=== PATIENT | female | born 2000 | race Two or more races ===

== ENCOUNTER 2022-01-24 09:05 | Emergency (ER) | payer MEDICAID, SELFPAY ==
[2022-01-24 09:18] VITALS: BP 122/71; PULSE 84; RESP 16; TEMP 37; O2SAT 99
--- NOTE | 2022-01-24 09:55 | ED.EAR ---
HPI - Ear Problem General Chief complaint: Ear Stated complaint: right ear pain Time Seen by Provider: 01/24/22 09:48 Source: patient and RN notes reviewed Mode of arrival: ambulatory Limitations: no limitations History of Present Illness HPI Narrative: Patient presents today complaining of right ear pain since late last night with occasional muffling. She currently rates pain 5/10 and has been taking allergy medication without relief. Denies drainage. Denies recent illness. MD Complaint: ear pain and decreased hearing Related Data Allergies Allergy/AdvReac Type Severity Reaction Status Date / Time No Known Allergies Allergy Verified 01/24/22 09:33 Review of Systems Review of Systems: CONSTITUTIONAL: Denies body aches, fever, chills, or sweats. EYES: Denies visual changes, redness, or discharge. ENT: Denies rhinorrhea, congestion, sore throat. + Right ear pain with occasional muffling CARDIOVASCULAR: Denies chest pain, palpitations, or edema. RESPIRATORY: Denies cough or dyspnea. GASTROINTESTINAL: Denies abdominal pain, nausea, vomiting, or diarrhea. GENITOURINARY: Denies dysuria or hematuria. SKIN: Denies rash, itching, or wounds. MUSCULOSKELETAL: Denies back pain, joint pain, or myalgia. NEUROLOGIC: Denies headache, numbness, tingling, or weakness. PSYCH: Denies depression or anxiety. PMFSH Comments At time of signature, I have reviewed and agree with nursing past medical, surgical, social and family history unless otherwise noted. Please see nursing chart for further information. There is no relevant family history pertinent to the presenting complaint Exam Narrative: GENERAL: Well-appearing, well-nourished, and in no acute distress. HEAD: Normocephalic, atraumatic. EYES: EOMI. No redness or drainage. Conjunctivae normal. ENT: Mucous membranes pink and moist. Nares clear. No rhinorrhea. Left ear normal. Right TM normal. Right ear canal is erythematous and mildly edematous with right yellow debris. Mild movement tenderness. NECK: Normal AROM. CHEST: No respiratory distress. EXTREMITIES: Normal range of motion. No edema. SKIN: Warm, dry, no rash. Capillary refill normal. Normal skin turgor. NEURO: No focal deficits. Alert and oriented x3. Gait steady. PSYCH: Normal affect. No signs of depression or anxiety. Course Course Level of Care: Express Care Visit Vital Signs Vital signs: Vital Signs Temperature 98.6 F 01/24/22 09:18 Pulse Rate 84 01/24/22 09:18 Respiratory Rate 16 01/24/22 09:18 Blood Pressure 122/71 01/24/22 09:18 Pulse Oximetry 99 01/24/22 09:18 Temperature 98.6 F 01/24/22 09:18 Pulse Rate 84 01/24/22 09:18 Respiratory Rate 16 01/24/22 09:18 Blood Pressure 122/71 01/24/22 09:18 Pulse Oximetry 99 01/24/22 09:18 Reviewed. Pt has been instructed to follow up with her PCP regarding her elevated blood pressure today. Medical Decision Making Differential Diagnosis Differential Diagnosis: Otitis media, otitis externa, ruptured TM, serous otitis, eustachian tube dysfunction, cerumen impaction Vital Signs Vital Signs: Vital Signs Temperature 98.6 F 01/24/22 09:18 Pulse Rate 84 01/24/22 09:18 Respiratory Rate 16 01/24/22 09:18 Blood Pressure 122/71 01/24/22 09:18 Pulse Oximetry 99 01/24/22 09:18 Temperature 98.6 F 01/24/22 09:18 Pulse Rate 84 01/24/22 09:18 Respiratory Rate 16 01/24/22 09:18 Blood Pressure 122/71 01/24/22 09:18 Pulse Oximetry 99 01/24/22 09:18 Critical Care Time Critical Care Time Critical Care Time: No Discharge Plan Discharge Clinical Impression: Otitis externa of right ear Qualifiers: Otitis externa type: unspecified type Chronicity: acute Qualified Code(s): H60.501 - Unspecified acute noninfective otitis externa, right ear Patient Disposition: Home, Self-Care Condition: Stable Instructions: Swimmer's Ear (ED) Additional Instructions: Please use the eardrops as directed.
== END 2022-01-24 10:02 | disposition home or self-care (01) ==
PROVIDERS: Emergency Provider Nurse Practitioner
DX: H60.501 Unspecified acute noninfective otitis externa, right ear (principal)
CPT/HCPCS: 99203; G0463

== ENCOUNTER 2022-01-25 10:23 | Emergency (ER) | payer MEDICAID, SELFPAY ==
--- NOTE | 2022-01-25 10:34 | ED.EAR ---
HPI - Ear Problem General Chief complaint: Ear Stated complaint: Ear Pain Time Seen by Provider: 01/25/22 10:35 Source: patient Mode of arrival: ambulatory Limitations: no limitations History of Present Illness HPI Narrative: 21-year-old female presents with right ear pain. Patient was seen here yesterday for right otitis externa, prescribed Ciprodex. Patient reports that she has used a drop 3 times without relief of symptoms. Also states that she is taking ibuprofen. Denies fever. All systems reviewed and negative except as noted above. Related Data Allergies Allergy/AdvReac Type Severity Reaction Status Date / Time No Known Allergies Allergy Verified 01/25/22 10:29 Review of Systems Review of Systems: CONSTITUTIONAL: Denies fever, chills, or sweats. EYES: Denies visual changes, redness, or discharge. ENT: Denies rhinorrhea, congestion, sore throat. Reports right ear pain CARDIOVASCULAR: Denies chest pain, palpitations, or edema. RESPIRATORY: Denies cough or dyspnea. GASTROINTESTINAL: Denies abdominal pain, nausea, vomiting, or diarrhea. GENITOURINARY: Denies dysuria or hematuria. SKIN: Denies rash or itching. MUSCULOSKELETAL: Denies back pain, joint pain, or myalgia. NEUROLOGIC: Denies headache, numbness, or weakness. PSYCHIATRIC: Denies anxiety or depression. All other systems reviewed are negative, except as documented in HPI. PMFSH Comments At time of signature, agree with nursing past medical, surgical, social and family history. There is no relevant family history pertinent to the presenting complaint. Exam Narrative: GENERAL: This is a well-nourished, well-developed patient, in no apparent distress. HEAD: normocephalic, atraumatic. EYES: PERRL. Sclera clear/white. Vision is grossly intact. EARS: External ears normal. Erythema, swelling, yellow drainage to right ear canal. TMs normal without perforation. Hearing grossly intact. NOSE: External nose normal THROAT: Mucous membranes moist NECK: Neck supple, non-tender without lymphadenopathy, masses or thyromegaly. CARDIOVASCULAR: Regular rate and rhythm without murmurs, gallops, or rubs. RESPIRATORY: Clear to auscultation. Breath sounds equal bilaterally. No wheezes, rales, or rhonchi. SKIN: warm, Dry, intact with no suspicious lesions or rash, good texture and turgor. NEURO: awake, alert, and oriented to person, place and time. There were no obvious focal neurologic abnormalities. EXTREMITIES: Normal range of motion. BACK: Nontender without deformity. No CVA tenderness. Course Course Level of Care: Express Care Visit Vital Signs Vital signs: Vital Signs Temperature 37.2 C 01/25/22 10:35 Pulse Rate 95 01/25/22 10:35 Respiratory Rate 16 01/25/22 10:35 Blood Pressure 131/62 01/25/22 10:35 Pulse Oximetry 100 01/25/22 10:35 Temperature 37.2 C 01/25/22 10:35 Pulse Rate 95 01/25/22 10:35 Respiratory Rate 16 01/25/22 10:35 Blood Pressure 131/62 01/25/22 10:35 Pulse Oximetry 100 01/25/22 10:35 Reviewed Medical Decision Making MDM Narrative Medical decision making narrative: Patient is aware of diagnosis, understands and agrees to treatment plan. Anticipatory guidance given. Patient agrees to follow-up as directed and is aware of reasons to seek care at the emergency department. Portions of this record may have been created with voice recognition software Recommend patient continue Ciprodex. Vital Signs Vital Signs: Vital Signs Temperature 37.2 C 01/25/22 10:35 Pulse Rate 95 01/25/22 10:35 Respiratory Rate 16 01/25/22 10:35 Blood Pressure 131/62 01/25/22 10:35 Pulse Oximetry 100 01/25/22 10:35 Temperature 37.2 C 01/25/22 10:35 Pulse Rate 95 01/25/22 10:35 Respiratory Rate 16 01/25/22 10:35 Blood Pressure 131/62 01/25/22 10:35 Pulse Oximetry 100 01/25/22 10:35 Discharge Plan Discharge Clinical Impression: Acute otitis externa of right ear Patient Disposition:
[2022-01-25 10:35] VITALS: BP 131/62; PULSE 95; RESP 16; TEMP 37.2; O2SAT 100
== END 2022-01-25 10:44 | disposition home or self-care (01) ==
PROVIDERS: Emergency Provider Nurse Practitioner Family
DX: H60.91 Unspecified otitis externa, right ear (principal)
CPT/HCPCS: 99211; G0463

== ENCOUNTER 2022-02-18 08:35 | Emergency (ER) | payer MEDICAID, SELFPAY ==
[2022-02-18 08:46] VITALS: BP 119/62; PULSE 76; RESP 16; TEMP 36.7; O2SAT 99
--- NOTE | 2022-02-18 09:05 | ED.LOWEXIN ---
HPI - Extremity Injury (Lower) General Chief Complaint: Extremity Injury, Lower Stated Complaint: Right foot Pain Source: patient Mode of arrival: ambulatory Limitations: no limitations History of Present Illness HPI Narrative: 21-year-old female presents to [facility] with complaints of pain and mild swelling to the lateral aspect of her right foot since yesterday. Patient reports that she has been working long hours and works at a local [employer]. Patient reports that she stands for her entire shift. Patient is currently 12 weeks . Patient reports that she has her first OB appointment scheduled for later in the month. Patient has been taking [id number] ibuprofen with minimal relief. Patient denies injury to her foot. Injury: Right: foot Relieving factors: nothing Related Data Home Medications Medication Instructions Recorded Confirmed [id number] 1 tablet PO DAILY 02/18/22 02/18/22 [] Allergies Allergy/AdvReac Type Severity Reaction Status Date / Time No Known Allergies Allergy Verified 02/18/22 08:55 Review of Systems Constitutional: Constitutional: Denies chills, Denies fever(s) and Denies weakness Cardiovascular: Cardiovascular: Denies chest pain Respiratory: Respiratory: Denies cough and Denies dyspnea Gastrointestinal: Gastrointestinal: Denies abdominal pain, Denies nausea and Denies vomiting Musculoskeletal: Musculoskeletal: Reports arthralgias and Reports joint swelling Integumentary/Breasts: Skin/Breast: Denies rash PMFSH Past Medical History Medical History (Updated 02/18/22 @ 09:10 by Anusha Ibarra APRN) Tonsillectomy planned Comments At time of signature, I agree with nursing past medical, surgical, social and family history. There is no relevant family history pertinent to the presenting complaint. Exam Const: General: no acute distress Nutritional Appearance: well nourished Orientation/consciousness: patient oriented x3 Neck: Neck: normal visual inspection Resp: Effort & Inspection: normal respiratory effort and not tachypneic Auscultation: clear to auscultation bilaterally Cardio: Rate: regular rate and not bradycardic Rhythm: abnormal rhythm Skin: General skin exam: normal color Rashes: no rashes Wounds: no wounds Neuro: General: patient oriented x3, moves all extremities and no meningeal signs Speech: normal speech Extrem: Other: Very mild swelling and pain noted to lateral aspect of right foot upon palpation. There is no erythema, bruising, open wounds noted. Full range of motion is noted to right foot. Pulses are within normal limits Psych: Appearance: grossly normal Affect: normal affect Attitude: cooperative Thought content: Yes Normal thought content present Course Course Level of Care: Express Care Visit Vital Signs Vital signs: Vital Signs Temperature 36.7 C 02/18/22 08:46 Pulse Rate 76 02/18/22 08:46 Respiratory Rate 16 02/18/22 08:46 Blood Pressure 119/62 02/18/22 08:46 Pulse Oximetry 99 02/18/22 08:46 Temperature 36.7 C 02/18/22 08:46 Pulse Rate 76 02/18/22 08:46 Respiratory Rate 16 02/18/22 08:46 Blood Pressure 119/62 02/18/22 08:46 Pulse Oximetry 99 02/18/22 08:46 MDM - Extremity Injury (Lower) MDM Narrative Medical decision making narrative: No x-ray was completed as patient is currently 12 weeks . There is no history of injury to her foot. Informed patient to avoid ibuprofen as she is and to take [id number] Tylenol as needed for pain. Rice therapy discussed with patient. Junito wrap was applied to right foot. Patient agrees to proceed to the emergency room if symptoms worsen Differential Diagnosis Differential diagnosis: Likely other (Sprain, avulsion, abrasion) Critical Care Time Critical Care Time Critical Care Time: No Discharge Plan Discharge Clinical Impression: Acute foot pain Qualifiers: Laterality: right Qualif
== END 2022-02-18 09:15 | disposition home or self-care (01) ==
PROVIDERS: Emergency Provider Nurse Practitioner Family
DX: M79.671 Pain in right foot (principal)
CPT/HCPCS: 99212; G0463